=== PATIENT | male | born 1990 | race Two or more races ===

== ENCOUNTER 2025-03-24 20:37 | Emergency (ER) | payer OTHER ==
[~2025-03-24] VITALS: Ht 167.6 cm; Wt 102.5 kg
[2025-03-24 22:45] VITALS: BP 110/87; TEMP 98; O2SAT 96
== END 2025-03-24 22:47 | disposition home or self-care (01) ==
LOC: ER 20:45
DX: S06.0X0A Concussion without loss of consciousness, initial encounter (principal); S60.410A Abrasion of right index finger, initial encounter; S60.511A Abrasion of right hand, initial encounter; M79.672 Pain in left foot; M79.601 Pain in right arm; I10 Essential (primary) hypertension; R00.0 Tachycardia, unspecified; R11.2 Nausea with vomiting, unspecified; V43.52XA Car driver injured in collision with other type car in traffic accident, initial encounter; Y93.89 Activity, other specified; Y92.488 Other paved roadways as the place of occurrence of the external cause; Y99.8 Other external cause status
CPT/HCPCS: A4606; A4663